=== PATIENT | female | born 1995 | race Caucasian/White ===

== ENCOUNTER 2024-06-10 12:24 | Inpatient (IN) | payer OTHER ==
[2024-06-10 13:06] LABS: BASOPHILS PERCENT AUTO 0.3 % (0.0-1.0); EOSINOPHILS ABSOLUTE AUTO 0.1 K/mm3 (0.0-0.4); EOSINOPHILS PERCENT AUTO 0.8 % (0.0-6.0); HEMATOCRIT 34.1 % (37.0-47.0); HEMOGLOBIN 11.4 gm/dl (12.0-16.0); LYMPHOCYTES ABSOLUTE AUTO 2.2 K/mm3 (1.0-4.8); LYMPHOCYTES PERCENT AUTO 22.4 % (24.0-44.0); MEAN CORPUSCULAR HEMOGLOBIN 29.1 pg (28.0-32.0); MEAN CORPUSCULAR HGB CONC 33.4 g/dl (32.0-36.0); MEAN PLATELET VOLUME 10.1 fl (9.4-12.3); MONOCYTES ABSOLUTE AUTO 1.1 K/mm3 (0.0-0.8); MONOCYTES PERCENT AUTO 11.2 % (0.0-8.0); NEUTROPHILS ABSOLUTE AUTO 6.3 K/mm3 (1.8-7.7); NEUTROPHILS PERCENT AUTO 64.3 % (41.0-71.0); PLATELET COUNT,PLT 262 K/mm3 (150-400); RED BLOOD CELL COUNT 3.92 M/mm3 (4.10-5.30); WHITE BLOOD CELL COUNT,WBC 9.76 K/mm3 (3.9-11.3)
[2024-06-10 13:28] LABS: CREATININE 0.7 mg/dL (0.55-1.02); EST CRCL DRUG DOSING (CG) 114.28 mL/min
[2024-06-10] MEDS: Acetaminophen 325 MG Tab PO PRN (13:38)
[2024-06-10 13:44] LABS: CREATININE,URINE RAND 37.8 mg/dL (30.0-125.0); PROTEIN,URINE RANDOM 7.9 mg/dL (0.0-11.8)
[2024-06-10] MEDS ORDERED: Lidocaine 1% 50 ML MDV INJECT PRN (14:18)
[2024-06-10] MEDS ORDERED: Sodium Chloride 0.9% 10 ML Syringe FLUSH PRN (14:18)
[2024-06-10] MEDS ORDERED: Calcium Carbonate 500 MG Tab.Chew PO PRN (14:18)
[2024-06-10] MEDS ORDERED: Oxytocin/0.9 % Sodium Chloride 30 UNIT/500 ML BAG IV SCH (14:30)
[2024-06-10] MEDS: Misoprostol 25 MCG (1/4 of 100 MCG) Tab VAG ONE ×2 (15:43→20:00)
[2024-06-10] MEDS ORDERED: ePHEDrine 50 MG/ML SDV IVPUSH PRN (17:18)
[2024-06-10] MEDS ORDERED: diphenhydrAMINE 50 MG/ML SDV IVPUSH PRN (17:18)
[2024-06-10] MEDS ORDERED: fentaNYL 100 MCG/2 ML SDV EPIDUR PRN (17:18)
[2024-06-11] MEDS: Misoprostol 25 MCG (1/4 of 100 MCG) Tab VAG ONE (00:07)
[2024-06-11] MEDS: Nalbuphine 10 MG/1 ML Vial IVPUSH PRN (04:50)
[2024-06-11] MEDS: Lactated Ringers 1,000 ML IV SCH (06:37)
[2024-06-11] MEDS: Oxytocin/0.9 % Sodium Chloride 30 UNIT/500 ML BAG IV SCH (06:37)
[2024-06-11] MEDS ORDERED: diphenhydrAMINE 50 MG/ML SDV IVPUSH PRN (08:53)
[2024-06-11] MEDS ORDERED: ePHEDrine 50 MG/ML SDV IVPUSH PRN (08:53)
[2024-06-11] MEDS ORDERED: Bupivacaine/fentaNYL/NS 100 ML Bag EPIDUR PRN (08:53)
[2024-06-11] MEDS: Ondansetron 4 MG/2 ML SDV IVPUSH PRN (08:55)
[2024-06-11] MEDS: Bupivacaine/fentaNYL/NS 100 ML Bag EPIDUR PRN (09:00)
[2024-06-11] MEDS ORDERED: Acetaminophen 325 MG Tab PO PRN (16:49)
[2024-06-11] MEDS: Ibuprofen 600 MG Tab PO SCH (17:52)
[2024-06-11] MEDS: Witch Hazel Medicated Pads 40/Jar TOP PRN (17:52)
[2024-06-11] MEDS: Benzocaine/Menthol 20%-0.5% Spray 78 GM Cannister TOP PRN (17:53)
[2024-06-12] MEDS: Docusate Sodium 100 MG Cap PO PRN (18:55)
== END 2024-06-13 09:45 | disposition home or self-care (01) | DRG 807 ==
LOC: JD.OBCHECK 12:24 → JD.OB 12:50 → JD.OBCHECK 14:17 → JD.OB 14:18 → OBSVTOIN 06-11 13:23 → JD.OB 06-11 13:24
PROVIDERS: ADMIT Obstetrics & Gynecology; ATTEND Obstetrics & Gynecology
PROC: 10E0XZZ Delivery of Products of Conception, External Approach (ICD-10-PCS; principal; 2024-06-11)
PROC: 0KQM0ZZ Repair Perineum Muscle, Open Approach (ICD-10-PCS; 2024-06-11)
PROC: 3E033VJ Introduction of Other Hormone into Peripheral Vein, Percutaneous Approach (ICD-10-PCS; 2024-06-11)
PROC: 3E0R3BZ Introduction of Anesthetic Agent into Spinal Canal, Percutaneous Approach (ICD-10-PCS; 2024-06-11)
PROC: 00HU33Z Insertion of Infusion Device into Spinal Canal, Percutaneous Approach (ICD-10-PCS; 2024-06-11)
DX: O13.4 Gestational [pregnancy-induced] hypertension without significant proteinuria, complicating childbirth (principal); Z37.0 Single live birth; Z3A.37 37 weeks gestation of pregnancy; O70.1 Second degree perineal laceration during delivery; O69.81X0 Labor and delivery complicated by cord around neck, without compression, not applicable or unspecified; O42.02 Full-term premature rupture of membranes, onset of labor within 24 hours of rupture
CPT/HCPCS: 01967; 36415; 51701; 59025; 59409; 82565; 82570; 83615; 84156; 84450; 84460; 84520; 84550; 85025; 86592; 86850; 86900; 86901; A9270-GY; C1726; J2300; J2405; J3490; J7120; J7999